=== PATIENT | female | born 1945 ===

== ENCOUNTER 2022-03-05 10:06 | Observation (INO) ==
[~2022-03-05 10:06] MED LIST: Buffered Lidocaine 1% SYRIN 1 ml INTRADERM ONE; Lactated Ringers 1000 ml BAG 1,000 ML IV SCH
[2022-03-05] MEDS ORDERED: Clindamycin 900 MG/D5W BAG 900 MG/50 ML BAG IVPB ONE (10:25)
[2022-03-05] MEDS ORDERED: ROPIVACAINE 5 MG/ML 30 ML BTL (0.5%) ONE (12:03)
[2022-03-05] MEDS ORDERED: Midazolam 2 mg/2 ml VIAL 1 mg/ml 2 ml VIAL (2 mg) ONE (12:03)
[2022-03-05] MEDS ORDERED: Lidocaine 1% MPF 5 ML VIAL ONE (12:10)
[2022-03-05] MEDS ORDERED: fentaNYL 100 mcg/2 ml 50 MCG/ML VIAL ONE (12:34)
[2022-03-05] MEDS ORDERED: Ropivacaine 5 MG/ML 20 ML VIAL 0.5% (100 MG) ONE (12:35)
[2022-03-05] MEDS ORDERED: Lidocaine 2% PF 5 ML VIAL ONE (12:36)
[2022-03-05] MEDS ORDERED: Propofol 10 MG/ML 20 ML BTL ONE (12:36)
[2022-03-05] MEDS ORDERED: Acetaminophen IV 1 GM/100ML 1,000 MG/100 ML BAG IV ONE (13:48)
[2022-03-05] MEDS ORDERED: Ondansetron 4 mg VIAL 2 MG/ML 2 ml VIAL ONE (13:51)
[2022-03-05] MEDS ORDERED: Dexamethasone IV 4 MG/ML VIAL 1 ml VIAL ONE (13:51)
[2022-03-05] MEDS ORDERED: Naloxone 0.4 mg VIAL 0.4 mg/ml 1 ml VIAL IV PRN (14:15)
[2022-03-05] MEDS ORDERED: HYDROmorphone 1 MG/1 ML SYRINGE IV PRN (14:15)
[2022-03-05] MEDS ORDERED: Ondansetron ODT 4 mg TAB 4 MG TAB PO PRN (15:27)
[2022-03-05] MEDS ORDERED: Ondansetron 4 mg VIAL 2 MG/ML 2 ml VIAL IV PRN (15:27)
[2022-03-05] MEDS ORDERED: Lactulose 30 ml UDC PO PRN (15:27)
[2022-03-05] MEDS ORDERED: Morphine 2 MG/ML SYRINGE IV PRN (15:27)
[2022-03-05] MEDS ORDERED: Magnesium Hydroxide LIQ 30 ML UDC PO PRN (15:27)
[2022-03-05] MEDS ORDERED: Lactated Ringers 1000 ml BAG 1,000 ML IV SCH (16:00)
[2022-03-05] MEDS ORDERED: Albuterol HFA INHALER 8 gm MDI INH PRN (17:15)
[2022-03-05] MEDS: Clindamycin 600 MG/D5W BAG 600 MG/50 ML BAG IV SCH (21:21)
[2022-03-05] MEDS: Magnesium Hydroxide LIQ 30 ML UDC PO SCH (21:25)
[2022-03-06] MEDS: Clindamycin 600 MG/D5W BAG 600 MG/50 ML BAG IV SCH ×2 (05:30→14:15)
[2022-03-06 06:11] LABS: Hematocrit 34 % (35-47); Hemoglobin 10.9 g/dL (12.0-16.0); Mean Platelet Volume 7.2 fL (7.4-10.4); Platelet Count 314 10^3/uL (150-450)
[2022-03-06 06:29] LABS: Calcium 9.2 mg/dL (8.6-10.3); Potassium 4.8 mmol/L (3.5-5.0); eGFR CKD-EPI 75.2 (>60)
[2022-03-06] MEDS: Magnesium Hydroxide LIQ 30 ML UDC PO SCH (08:41)
[2022-03-06] MEDS ORDERED: Vitamin THERAPEUTIC TAB PO SCH (09:00)
[2022-03-06 10:01] VITALS: BP 113/66
== END 2022-03-06 16:00 | disposition home or self-care (01) ==
LOC: SSU 10:06 → OR 10:06 → EDSTATUS 14:15
PROVIDERS: ADMIT Orthopaedic Surgery Adult Reconstructive Orthopaedic Surgery; ATTEND Orthopaedic Surgery Adult Reconstructive Orthopaedic Surgery